=== PATIENT | male | born 1965 | race Caucasian/White ===

== ENCOUNTER 2018-11-24 16:28 | Observation (INO) | payer OTHER ==
[~2018-11-24] VITALS: Ht 180.3 cm; Wt 100.0 kg
--- NOTE | 2018-11-24 16:28 | NUR ---
TO ROOM 1 VIA EMS
--- NOTE | 2018-11-24 16:55 | NUR ---
SILVERING APPLICATOR BEDSIDE FOR PORTABLES. DR GARCIA NOTIFIED OF POSSIBLE FX TO TIB/FIB.
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
--- NOTE | 2018-11-24 17:21 | NUR ---
PT MEDICATED FOR PAIN WITH MORPHINE AND ZOFRAN IV. TOLERATED MEDICATION ADMINISTRATION WELL. PT RESTING ON STRETCHER WITH PILLOW SUPPORT TO RLE. VERBALIZES NO NEEDS AT THIS TIME. CALL LIGHT WITHIN REACH.
--- NOTE | 2018-11-24 17:35 | NUR ---
[facility] PERSONNEL X 2 BEDSIDE TO SPEAK WITH PT.
--- NOTE | 2018-11-24 17:43 | NUR ---
DR GARCIA ON PHONE WITH DR HEBERT. PLAN FOR SURGERY TONIGHT AT [facility]. KEEP PT NPO AND ORDER LABS.
--- NOTE | 2018-11-24 18:09 | NUR ---
EKG PERFORMED PER EDP ORDER.
--- NOTE | 2018-11-24 18:20 | NUR ---
CHARISSA BLISS BEDSIDE TO SPEAK WITH PT.
[2018-11-24 18:23] LABS: HEMATOCRIT 33.7 % (39.0-50.0); HEMOGLOBIN 9.6 g/dl (14.0-18.0); IMMATURE GRANULOCYTES 0.4 % (0.0-5.0); MEAN CELL VOLUME 75.6 fL CALC (80.0-100.0); MEAN CORPUSCULAR HGB 21.5 pG CALC (26.0-32.0); MEAN CORPUSCULAR HGB CONC 28.5 g/L CALC (32.0-36.0); NEUT# 7.36 thou/uL (1.82-7.42); RED BLOOD COUNT 4.46 mill/uL (4.70-6.10); RED CELL DISTRI WIDTH 16.4 % (11.5-15.5)
[2018-11-24] MEDS ORDERED: MITIGARE0.6 MG PO (18:36)
[2018-11-24 18:37] LABS: PROTHROMBIN TIME 10.6 SECONDS (9.0-12.5)
[2018-11-24 18:39] LABS: CREATININE 1.7 mg/dL (0.7-1.3); POTASSIUM 4.2 mmol/l (3.5-5.1)
--- NOTE | 2018-11-24 18:50 | NUR ---
PT MEDICATED WITH ADDITIONAL DOSE OF MORPHINE 4 MG IV. TOLERATED MEDICATION ADMINISTRATION WELL. BEDSIDE REPORT GIVEN TO RALPH REID. PT MOVED TO OR STRETCHER VIA 4 PERSON ASSIST. PT LEFT ER IN STABLE CONDITION TO OR. CARE RELINQUISHED.
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
[2018-11-24 22:00] VITALS: BP 138/98
[2018-11-24 22:15] VITALS: BP 140/90
[2018-11-24 22:30] VITALS: BP 137/88
[2018-11-24 22:45] VITALS: BP 120/84
[2018-11-24 23:15] VITALS: BP 134/84
[2018-11-24 23:45] VITALS: BP 135/94
[2018-11-25 00:45] VITALS: BP 122/90
--- NOTE | 2018-11-25 02:52 | NUR ---
PT RESTING IN BED WITH EYES CLOSED. CAPILLARY REFILL LESS THAN 3 SEC. EXTREM WARM TO TOUCH. PT ABLE TO MOVE EXTREM. DENIES PAIN AT THIS TIME. ICE PACK PROVIDED. BED IN LOWEST POSITION AND CALL LIGHT WITHIN REACH. WILL MONITOR,
[2018-11-25 04:10] VITALS: BP 100/73
--- NOTE | 2018-11-25 05:30 | NUR ---
PT SENT TO RADIOLOGY FOR CT TO LOWER EXTREMITIY. PT MEDICATED FOR PAIN PRIOR TO LEAVING. DENIES PAIN. ABLE TO PIVOT INTO WHEELCHAIR. FINANCIAL INSTITUTION MANAGER TO ASSIST IN RADIOLOGY.
--- NOTE | 2018-11-25 05:51 | NUR ---
PT R LOWET EXTREMITY CAPILLARY REFILL CHECK AND REASSES HOURLY. PT EXTREMITY WARM TO TOUCH AND CAPILLATY REFILL LESS THAN 3. PT ABLE TO MOVE AND FEEL TOUCH TO EXTREMITY. PT EDUCATED THROUGHOUT NIGHT TO CALL OR NURSE IF NUMBNESS OR UNEXPLAINED PAIN FELT. PT VOICED UNDERSTANDING. WILL MONITOR.
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
[2018-11-25 09:15] VITALS: BP 98/62
[2018-11-25 11:00] VITALS: BP 100/50
[2018-11-25 11:19] LABS: HEMATOCRIT 31.9 % (39.0-50.0); HEMOGLOBIN 8.8 g/dl (14.0-18.0); IMMATURE GRANULOCYTES 0.4 % (0.0-5.0); MEAN CELL VOLUME 77.2 fL CALC (80.0-100.0); MEAN CORPUSCULAR HGB 21.3 pG CALC (26.0-32.0); MEAN CORPUSCULAR HGB CONC 27.6 g/L CALC (32.0-36.0); NEUT# 4.77 thou/uL (1.82-7.42); RED BLOOD COUNT 4.13 mill/uL (4.70-6.10); RED CELL DISTRI WIDTH 16.6 % (11.5-15.5)
[2018-11-25 11:23] LABS: ALBUMIN 3.5 g/dL (3.2-5.0); BILIRUBIN, TOTAL 0.5 mg/dL (0.0-1.4); CREATININE 1.9 mg/dL (0.7-1.3); POTASSIUM 4.1 mmol/l (3.5-5.1); TOTAL PROTEIN 6.3 g/dL (6.3-8.2)
--- NOTE | 2018-11-25 12:00 | NUR ---
RESTING SUPINE IN BED AFTER MEAL, SPOUSE AT BEDSIDE, PAIN CONCERNS ADDRESSED.
--- NOTE | 2018-11-25 13:00 | NUR ---
DR GARLAND ROUNDED AND ADVISED PT VERBALLY OF FOLLOW-UP APPOINTMENT, INSTRUCTIONS WRITTEN IN C/D ORDERS
[2018-11-25] MEDS ORDERED: OXYCOD-APAP1 TA1 PO (13:50)
--- NOTE | 2018-11-25 15:15 | NUR ---
Discharge instructions given. Patient verbalizes understanding of same. Discharged in stable condition via Wheelchair to Home with significant other. All belongings sent with pt.
== END 2018-11-25 15:40 | disposition home or self-care (01) | DRG 494 ==
LOC: ED 16:28 → ED-I 18:03 → ED 18:14 → MS2 18:15
PROVIDERS: Family Medicine; ADMIT Internal Medicine Nephrology; ATTEND Internal Medicine Nephrology
PROC: 0QSG3BZ Reposition Right Tibia with Monoplanar External Fixation Device, Percutaneous Approach (ICD-10-PCS; principal; 2018-11-24)
PROC: 0QSJ04Z Reposition Right Fibula with Internal Fixation Device, Open Approach (ICD-10-PCS; 2018-11-24)
PROC: 3E02340 Introduction of Influenza Vaccine into Muscle, Percutaneous Approach (ICD-10-PCS; 2018-11-25)
DX: S82.871A Displaced pilon fracture of right tibia, initial encounter for closed fracture (principal); S82.451A Displaced comminuted fracture of shaft of right fibula, initial encounter for closed fracture; M10.9 Gout, unspecified; E66.9 Obesity, unspecified; D64.9 Anemia, unspecified; N18.3 Chronic kidney disease, stage 3 (moderate); V28.4XXA Motorcycle driver injured in noncollision transport accident in traffic accident, initial encounter; Z68.30 Body mass index [BMI] 30.0-30.9, adult; Z23 Encounter for immunization
CPT/HCPCS: C1713; J1650; J2270